=== PATIENT | male | born 1945 ===

== ENCOUNTER 2022-09-21 10:45 | Outpatient (CLI) | payer OTHER ==
[~2022-09-21 10:45] MED LIST changes: -CEPHALEXIN500 MG PO; -GABAPENTIN400 MG PO; -PYRIDIUM DS200 MG PO
[2022-09-21] MEDS ORDERED: PYRIDIUM DS200 MG PO (20:11)
[2022-09-21] MEDS ORDERED: GABAPENTIN400 MG PO (20:11)
[2022-09-21] MEDS ORDERED: CEPHALEXIN500 MG PO (20:12)
== END 2022-09-21 14:50 | disposition home or self-care (01) ==
LOC: LAB 10:45
PROVIDERS: ATTEND Surgery
DX: Z20.822 Contact with and (suspected) exposure to COVID-19 (principal)

== ENCOUNTER → 2022-09-21 | Day surgery (SDC) | payer OTHER ==
[~2022-09-21] VITALS: Ht 175.3 cm; Wt 68.0 kg
[~2022-09-21] MED LIST: CEPHALEXIN500 MG PO; GABAPENTIN400 MG PO; PYRIDIUM DS200 MG PO; ZESTRIL10 M1 PO
== END | disposition home or self-care (01) ==
LOC: ADM 09-03 08:45 → CIR.AMB 09-07 08:45
PROVIDERS: ATTEND Surgery
DX: N40.1 Benign prostatic hyperplasia with lower urinary tract symptoms (principal); Z20.822 Contact with and (suspected) exposure to COVID-19; I10 Essential (primary) hypertension; Z95.0 Presence of cardiac pacemaker; Z87.891 Personal history of nicotine dependence